=== PATIENT | female | born 1940 | race Caucasian/White ===

== ENCOUNTER 2017-10-25 16:00 | Inpatient (IN) ==
[2017-10-25] MEDS ORDERED: 0.9 % Sodium Chloride 1,000 ML IVC ONE (16:08)
[2017-10-25] MEDS ORDERED: *HR* Promethazine 25 MG/ML VIAL IVP ONE (16:09)
[2017-10-25 16:35] LABS: Basophils % 0.5 %; Eosinophils # 0.1 K/mcL (0.0-0.6); Eosinophils % 2.1 %; Hematocrit 30.6 % (35.3-44.9); Hemoglobin 10.6 g/dL (11.5-15.4); Immature Granulocytes % 0.3 % (0-4); Lymphocytes # 1.6 K/mcL (0.6-4.6); Lymphocytes % 23.8 %; Mean Corpuscular HGB Conc 34.6 g/dL (31.6-35.5); Mean Corpuscular Hemoglobin 32.9 pg (28.0-33.3); Mean Platelet Volume 10.6 fL (9.4-12.4); Monocytes # 0.5 K/mcL (0.0-1.3); Monocytes % 7.9 %; Neutrophils # 4.3 K/mcL (1.6-8.9); Platelet Count 259 K/mcL (140-400); Red Blood Count 3.22 M/mcL (3.82-4.97); Red Cell Distribution Width 14.6 % (11.5-14.5); Segmented Neutrophils % 65.4 %
[2017-10-25 16:41] LABS: INR 1.1; Prothrombin Time 11.4 Seconds (9.4-12.1)
[2017-10-25 16:44] LABS: Activated Partial Thrombo Time 26.6 Seconds (26.0-36.0)
[2017-10-25 16:49] LABS: BUN/Creatinine Ratio 17 (6-26); Blood Urea Nitrogen 21 mg/dL (8-23); Calcium 9.3 mg/dL (8.6-10.3); Carbon Dioxide 27 mEq/L (23-29); Chloride 107 mEq/L (98-107); Glucose 116 mg/dL (70-105); Osmolality,Calculated 298 (280-300); Potassium 3.8 mEq/L (3.5-5.1); Sodium 142 mEq/L (136-145); Troponin I < 0.03 ng/mL (< 0.04); eGFR For African Americans 53 (> 60); eGFR For Non-African Americans 43 (> 60)
--- NOTE | 2017-10-25 16:52 | Emergency Department Note ---
Disposition Clinical Impression: Lightheaded, Nausea, Melena, Upper gastrointestinal hemorrhage GI bleed Qualifiers: GI bleed type/associated pathology: unspecified gastrointestinal hemorrhage type Qualified Code(s): K92.2 - Gastrointestinal hemorrhage, unspecified Disposition: Admitted As Inpatient Condition: Fair Referrals: Suzy Villa CNP [Primary Care Provider] - Time of Disposition: 17:32 General Adult HPI - General Chief complaint: ED GI Bleed Stated complaint: Black Tarry Stools Time Seen by Provider: 10/25/17 16:07 Source: patient, EMS Limitations: no limitations Nursing Notes Reviewed: Yes Vital Signs Reviewed: Yes - History of Present Illness HPI Narrative: Ms. Banuelos is a very pleasant 77-year-old female with a history of anemia, coronary artery disease status post 7 stents, diverticulosis, GERD and IBS who presents to the [facility] emergency department chief complaint of nausea vomiting with lightheadedness. Patient was recently discharged from [facility] with [place] yesterday. Of note , she was admitted for a symptomatically anemia and was found to be FOBT positive. Patient had a EGD in 2017 that showed acute gastritis with reflux. As well as a coloscopy. Physical is unremarkable. Patient had serial H&H's remained stable throughout her stay. There is no emergent GI procedure was indicated. She was given a PPI throughout. Patient is on anticoagulation with aspirin and Plavix. Blood work on 10/22/17 demonstrated H&H of 10.6/29.3. There is no evidence of any blood transfusions were given. Patient denies any chest pain, palpitations, shortness of breath, abdominal pain, dysuria, gross materia, hematochezia or melena. No other complaints at this time. Pain Scale: 0 - Related Data Allergies Allergy/AdvReac Type Severity Reaction Status Date / Time Iodinated Contrast- Oral and Allergy Hives Verified 10/25/17 16:11 IV Dye meperidine [From Demerol] Allergy Hives Verified 10/25/17 16:11 Review of Systems: As Per HPI Past Medical History - Past Medical History Medical history: Reports: atrial fibrillation, coronary artery disease, hyperlipidemia, hypertension Psychiatric history: Reports: no psych history - Social History Smoking Status: Never smoker Smokeless Tobacco Status: No Alcohol use: Reports: none Drug use: Reports: none Physical Exam CONSTITUTIONAL: Alert and oriented X3 in no apparent distress HEAD: Normocephalic; atraumatic. EYES: Ocular movements grossly intact Oropharynx: pink/moist RESP: NRD without use of accessory musculature, CTA b/l with no wheezes/rales/ rhonchi CARD: Regular rhythm, without murmurs, rubs, or gallop ABD: grossly normal, soft, non-tender, no guarding/distention/rigidity SKIN: normal appearance, no pallor/diaphoresis,mottling,jaundice,cyanosis EXT: DP/Rad pulses 2+ and symmetrical; no lateralizing edema; no other lesions seen PSYCH: appropriate mood/affect - General Limitations: no limitations General appearance: alert, in no apparent distress Course Course Narrative: Patient was seen and examined at bedside. Vital signs reviewed and were unremarkable. Physical examination demonstrates no evidence of acute anemia. Patient is hemodynamically stable. Abdominal exam was unremarkable. There is no evidence of tenderness, rebound tenderness, guarding, rigidity. Patient is comfortable and nontoxic appearing at this time. Begin workup with CBC, BMP, troponin, coags, twelve-lead EKG. IV access will be obtained patient received IV fluids with 1 dose of Phenergan. 12-lead EKG demonstrated normal sinus rhythm without any obvious T-wave or ST abnormalities. This was compared to previous was performed on 10/22/17. Patient was stool Hemoccult positive. Troponin was negative. BMP shows mild elevation of creatinine 1.21. CBC demonstrates hemoglobin of 10.6 that was stable from previous discharge on . Given the patient was recently admitted for symptomatic anemia and did not receive any further endoscopy, I recommended patient be admitted to the hospital service for further evaluation. Hospitalist will be paged. [id number]: Spoke with hospitalist, , who accepted patient for admission. No further recommendations per hospital team. This disposition and plan was discussed patient who understands and agrees. All concerns and questions were addressed. Vital Signs Temperature 97.5 F L 10/25/17 16:02 Pulse Rate 62 10/25/17 16:02 Respiratory Rate 18 10/25/17 16:02 Blood Pressure 119/71 10/25/17 16:02 O2 Sat by Pulse Oximetry 98 10/25/17 16:02 Temperature 97.5 F L 10/25/17 16:02 Pulse Rate 62 10/25/17 16:02 Respiratory Rate 18 04/29/18 16:02 Blood Pressure 119/71 10/25/17 16:02 O2 Sat by Pulse Oximetry 98 10/25/17 16:02 Oxygen Delivery Oxygen Delivery Room Air Medical Decision Making - Medical Records Medical records reviewed: Yes I reviewed the patient's medical records. - Lab Data Lab results reviewed: Yes I reviewed the patient's lab results. Result diagrams: 10/25/17 16:16 10/25/17 16:16 Lab Results 10/25/17 10/25/17 10/25/17 Range/Units 16:16 16:16 16:16 WBC 6.6 (4.3-11.1) K/mcL RBC 3.22 L (3.82-4.97) M/mcL Hgb 10.6 L (11.5-15.4) g/dL Hct 30.6 L (35.3-44.9) % MCV 95.0 (83.0-100.0) fL MCH 32.9 (28.0-33.3) pg MCHC 34.6 (31.6-35.5) g/dL RDW 14.6 H (11.5-14.5) % Plt Count 259 (140-400) K/mcL MPV 10.6 (9.4-12.4) fL Immature Gran % 0.3 (0-4) % Seg Neutrophils % 65.4 % Lymphocytes % 23.8 % Monocytes % 7.9 % Eosinophils % 2.1 % Basophils % 0.5 % Neutrophils # 4.3 (1.6-8.9) K/mcL Lymphocytes # 1.6 (0.6-4.6) K/mcL Monocytes # 0.5 (0.0-1.3) K/mcL Eosinophils # 0.1 (0.0-0.6) K/mcL Basophils # 0.0 (0.0-0.2) K/mcL PT 11.4 (9.4-12.1) Seconds INR 1.1 APTT 26.6 (26.0-36.0) Seconds Sodium 142 (136-145) mEq/L Potassium 3.8 (3.5-5.1) mEq/L Chloride 107 (98-107) mEq/L Carbon Dioxide 27 (23-29) mEq/L BUN 21 (8-23) mg/dL Creatinine 1.21 H (0.60-1.20) mg/dL Est GFR ( Amer) 53 L (> 60) Est GFR (Non-Af Amer) 43 L (> 60) BUN/Creatinine Ratio 17 (6-26) Glucose 116 H (70-105) mg/dL Calculated Osmolality 298 (280-300) Calcium 9.3 (8.6-10.3) mg/dL Troponin I < 0.03 (< 0.04) ng/mL Attestation Statement - Attestation Attestation: I, Mervin Alves DO, examined this patient [id number] and my medical decision-making was reviewed with Rikki Rodriguez PGY-1, Resident Physician. I agree with the documented findings, disposition and treatment plan as described except to the extent set forth below. Please see my progress notes for details.
--- NOTE | 2017-10-25 17:29 | Emergency Department Note ---
Disposition Clinical Impression: Melena, Upper gastrointestinal hemorrhage, Lightheaded, Nausea Disposition: Admitted As Inpatient Condition: Fair Forms: ED Satisfaction Letter Time of Disposition: 17:39 General Adult HPI - General Chief complaint: ED GI Bleed Stated complaint: Black Tarry Stools Time Seen by Provider: 10/25/17 16:07 Source: patient, EMS Limitations: no limitations - History of Present Illness Pain Scale: 0 - Related Data Allergies Allergy/AdvReac Type Severity Reaction Status Date / Time Iodinated Contrast- Oral and Allergy Hives Verified 10/25/17 16:11 IV Dye meperidine [From Demerol] Allergy Hives Verified 10/25/17 16:11 Past Medical History - Past Medical History Medical history: Reports: atrial fibrillation, coronary artery disease, hyperlipidemia, hypertension Psychiatric history: Reports: no psych history - Social History Smoking Status: Never smoker Smokeless Tobacco Status: No Alcohol use: Reports: none Drug use: Reports: none Physical Exam - General Limitations: no limitations General appearance: alert, in no apparent distress Course Vital Signs Temperature 97.5 F L 10/25/17 16:02 Pulse Rate 62 10/25/17 16:02 Respiratory Rate 18 10/25/17 16:02 Blood Pressure 119/71 10/25/17 16:02 O2 Sat by Pulse Oximetry 98 10/25/17 16:02 Temperature 97.5 F L 10/25/17 16:02 Pulse Rate 62 10/25/17 16:02 Respiratory Rate 18 10/25/17 16:02 Blood Pressure 119/71 10/25/17 16:02 O2 Sat by Pulse Oximetry 98 10/25/17 16:02 Oxygen Delivery Oxygen Delivery Room Air Medical Decision Making - Lab Data Result diagrams: 10/25/17 16:16 10/25/17 16:16 Lab Results 10/25/17 10/25/17 10/25/17 Range/Units 16:16 16:16 16:16 WBC 6.6 (4.3-11.1) K/mcL RBC 3.22 L (3.82-4.97) M/mcL Hgb 10.6 L (11.5-15.4) g/dL Hct 30.6 L (35.3-44.9) % MCV 95.0 (83.0-100.0) fL MCH 32.9 (28.0-33.3) pg MCHC 34.6 (31.6-35.5) g/dL RDW 14.6 H (11.5-14.5) % Plt Count 259 (140-400) K/mcL MPV 10.6 (9.4-12.4) fL Immature Gran % 0.3 (0-4) % Seg Neutrophils % 65.4 % Lymphocytes % 23.8 % Monocytes % 7.9 % Eosinophils % 2.1 % Basophils % 0.5 % Neutrophils # 4.3 (1.6-8.9) K/mcL Lymphocytes # 1.6 (0.6-4.6) K/mcL Monocytes # 0.5 (0.0-1.3) K/mcL Eosinophils # 0.1 (0.0-0.6) K/mcL Basophils # 0.0 (0.0-0.2) K/mcL PT 11.4 (9.4-12.1) Seconds INR 1.1 APTT 26.6 (26.0-36.0) Seconds Sodium 142 (136-145) mEq/L Potassium 3.8 (3.5-5.1) mEq/L Chloride 107 (98-107) mEq/L Carbon Dioxide 27 (23-29) mEq/L BUN 21 (8-23) mg/dL Creatinine 1.21 H (0.60-1.20) mg/dL Est GFR ( Amer) 53 L (> 60) Est GFR (Non-Af Amer) 43 L (> 60) BUN/Creatinine Ratio 17 (6-26) Glucose 116 H (70-105) mg/dL Calculated Osmolality 298 (280-300) Calcium 9.3 (8.6-10.3) mg/dL Troponin I < 0.03 (< 0.04) ng/mL Attestation Statement - Attestation Attestation: I, Mervin Alves DO, examined this patient [id number] and my medical decision-making was reviewed with Rikki Rodriguez PGY-1, Resident Physician. I agree with the documented findings, disposition and treatment plan as described except to the extent set forth below. Please see my progress notes for details. 77-year-old female presents to the emergency room for evaluation dark colored stool. She was just discharged from an outside facility where she was evaluated for melanoma, weakness, possible anemia. She was discharged home yesterday and came back to her own residence. Over the last 24 hours she still had generalized weakness. She is unable to take care of herself. She currently denies chest pain shortness of breath headache vision changes nausea vomiting or diarrhea. Denies any fevers or chills. Patient has not been home greater than 24 hours. She still symptomatic with anemia that was found outside facility. She denies any trauma or injury at this time. She does have known atrial fibrillation and coronary artery disease. She denies any specific hemorrhage at this point. She has no abdominal pain nausea vomiting or diarrhea. Physical exam shows a well-appearing female in no specific distress. She is generally weak hypertension due to to move her exert herself. Workup will be culture from the outside facility repeat evaluation be completed here. Disposition to be determined once full workup and treatment course are established. Fluids will be given. Hemoccult testing to be collected. Otherwise her examination workup initially appear to be unremarkable. Vital signs are stable. See detailed documentation of the physical exam, medical intervention, medical decision-making and disposition in the resident physician' s note. [id number] Patient found to have stable hemoglobin at 10.6. Labs from outside facility were reviewed as well as the workup. Patient never received endoscopy there. Patient has had persistent anemia and symptomatic GI bleed at this point. She is Hemoccult positive on exam. Patient was discussed with the hospitals for admission observation and then possible endoscopy considering symptomatic presentation. No other recommendations from them at this time. Patient stable will be admitted at this time. No critical care applied to the treatment course at this time
[2017-10-25] MEDS ORDERED: Pantoprazole 40 MG VIAL IVP ONE (17:34)
--- NOTE | 2017-10-25 17:58 | Internal Med History&Physical ---
Date of Encounter: 10/25/17 Time of Encounter: 17:53 Internal Medicine - H&P: HPI Chief complaint: black stool Admitted From: Home Plans for Post Hospital Care: Home History of present illness: Ms. Banuelos is a 77 year old female who has history of CAD state opposes having stents on Plavix and aspirin, hypertension hyperlipidemia treated bowel syndrome presenting emergency room for Black stool and the syncope. Patient reports that she started to have black stool 10 days ago, was seen by her PCP and the also admitted to [facility] 2 days ago. They discharge her her on Tylenol and PPI home yesterday. But the patient to continue to have black stool and the dizziness. She passed out on Thursday, she also complains of right low quadrant abdominal pain, which started 10 days ago 3 out of 10 constant, eating make it worse. In the emergency room her vitals are stable, hemoglobin 10 no baseline number. Her stool occult blood was positive. Patient is going to be admitted for upper GI bleeding. Will give PPI twice a day, nothing by mouth after midnight consult the GI for possible endoscopy. He has been on Plavix and aspirin for many years. She also has right low quadrant pain and tenderness our do a CAT scan to rule out diverticulitis. Past Med Surg Social Fam HX - Past Medical History Medical history: atrial fibrillation, coronary artery disease, hyperlipidemia, hypertension Psychiatric history: no psych history - Social History Smoking Status: Never smoker Smokeless Tobacco Status: No Alcohol use: none Drug use: none Internal Medicine - H&P: Meds 3 Allergy/AdvReac Type Severity Reaction Status Date / Time Iodinated Contrast- Oral and Allergy Hives Verified 10/25/17 16:11 IV Dye meperidine [From Demerol] Allergy Hives Verified 10/25/17 16:11 All Systems PM: A 10-system review of systems was performed and is negative for pertinent findings except as documented above in the HPI. - Constitutional Vitals: Temp Pulse Resp BP Pulse Ox 97.5 F L 62 18 119/71 98 10/25/17 16:02 10/25/17 16:02 10/25/17 16:02 10/25/17 16:02 10/25/17 16:02 General appearance: Present: A&O X 3, pleasant Exam: CONSTITUTIONAL: Patient appears as an age appropriate female well developed, in no acute distress. EYES Clear sclerae, bilateral pupils are equal, reactive to light and accommodation. Extraocular movements are intact RESPIRATORY: No accessory muscle use, bilateral clear to auscultation, no wheezing, no crackles/rales. CARDIOVASCULAR: Regular heart rate, normal S1 and S2, no murmurs GASTROINTESTINAL: bowel sounds present, soft, right low quandary tenderness. No hepatosplenomegaly. No bilateral CVA tenderness MUSCULOSKELETAL: Joints in normal range of motion, no clubbing, no edema, no cyanosis. Bilateral peripheral pulses 2+ LYMPHATIC no lymphadenopathy in neck, groin and axilla bilaterally, no thyromegaly. NEUROLOGIC: CN II to XII are grossly intact, no focal neurological deficit. Deep tendon reflexes 2+ bilaterally. Normal light touch sensation to upper and lower extremity PSYCHIATRIC: Oriented x3, with good insight, mood is euthymic. No hallucinations or delusions. SKIN: Skin warm and dry, no rashes, no open wound. Internal Med - H&P Results - Labs CBC & Chem 7: 10/25/17 16:16 10/25/17 16:16 Labs: Short CBC 10/25/17 Range/Units 16:16 WBC 6.6 (4.3-11.1) K/mcL Hgb 10.6 L (11.5-15.4) g/dL Hct 30.6 L (35.3-44.9) % Plt Count 259 (140-400) K/mcL Neutrophils # 4.3 (1.6-8.9) K/mcL BMP 10/25/17 16:16 Sodium 142 Potassium 3.8 Chloride 107 Carbon Dioxide 27 BUN 21 Creatinine 1.21 H Glucose 116 H Calcium 9.3 Cardiac Enzymes 10/25/17 Range/Units 16:16 Troponin I < 0.03 (< 0.04) ng/mL - Assessment and plan (1) GI bleed Current Visit: Yes Status: Acute Assessment and plan: Patient has black stool for 10 days, she has been on aspirin and plavix for many years. Patient is at risk for upper GI bleeding we will consult the GI for possible endoscopy. Qualifiers: GI bleed type/associated pathology: melena Qualified Code(s): K92.1 - Melena (2) Anemia Current Visit: Yes Status: Acute Assessment and plan: Anemia of GI bleeding Qualifiers: Anemia type: iron deficiency Iron deficiency anemia type: chronic blood loss Qualified Code(s): D50.0 - Iron deficiency anemia secondary to blood loss (chronic) (3) CAD (coronary artery disease) Current Visit: Yes Status: Acute Assessment and plan: CAD stated post 7 stents last the stents in 2014, we will hold her Plavix continue baby aspirin Qualifiers: Coronary Disease-Associated Artery/Lesion type: [place] artery [place] vs. transplanted heart: [place] heart Associated angina: without angina Qualified Code(s): I25.10 - Atherosclerotic heart disease of [place] coronary artery without angina pectoris (4) Abdominal pain Current Visit: Yes Status: Acute Assessment and plan: Acute abdominal pain will check CT scan Qualifiers: Abdominal location: right lower quadrant Qualified Code(s): R10.31 - Right lower quadrant pain (5) Hypertension Current Visit: Yes Status: Chronic Assessment and plan: Continue home medications Qualifiers: Hypertension type: essential hypertension Qualified Code(s): I10 - Essential (primary) hypertension (6) Hyperlipidemia Current Visit: Yes Status: Chronic Qualifiers: Hyperlipidemia type: unspecified Qualified Code(s): E78.5 - Hyperlipidemia , unspecified (7) IBS (irritable bowel syndrome) Current Visit: Yes Status: Chronic Qualifiers: Irritable bowel syndrome type: with diarrhea Qualified Code(s): K58.0 - Irritable bowel syndrome with diarrhea - Time Spent With Patient Total time spent is greater than 50% in coordination of care (as documented) at patient's floor/unit and/or counseling patient: Greater than 35 minutes
[2017-10-25] MEDS ORDERED: Naloxone 0.4 MG/ML INJ IVP PRN (18:04)
[2017-10-25] MEDS: Ringers Solution, Lactated 1,000 ML IVC SCH (19:49)
[2017-10-26 04:29] LABS: Hematocrit 25.7 % (35.3-44.9); Mean Corpuscular HGB Conc 33.5 g/dL (31.6-35.5); Mean Corpuscular Volume 95.5 fL (83.0-100.0); Mean Platelet Volume 10.6 fL (9.4-12.4); Platelet Count 181 K/mcL (140-400); Red Blood Count 2.69 M/mcL (3.82-4.97); Red Cell Distribution Width 14.8 % (11.5-14.5)
[2017-10-26 04:31] LABS: Hemoglobin 8.6 g/dL (11.5-15.4)
[2017-10-26 05:28] LABS: Calcium 8.8 mg/dL (8.6-10.3); Potassium 3.4 mEq/L (3.5-5.1)
[2017-10-26] MEDS ORDERED: Pantoprazole 40 MG VIAL IVP SCH (06:00)
[2017-10-26] MEDS: amLODIPine 5 MG TABLET PO SCH (08:20)
[2017-10-26] MEDS: Ringers Solution, Lactated 1,000 ML IVC SCH (08:20)
[2017-10-26] MEDS ORDERED: Aspirin Enteric Coated 81 MG Tablet PO SCH (09:00)
[2017-10-26] MEDS ORDERED: Potassium Chloride 40 MEQ, Lidocaine 1% 2 ML in D5% in Water 500 ML IVPB ONE (10:01)
--- NOTE | 2017-10-26 10:12 | Internal Med Progress Note ---
Date of Encounter: 10/26/17 Time of Encounter: 09:30 - Assessment and plan (1) Upper gastrointestinal hemorrhage Current Visit: Yes Status: Acute Assessment and plan: Plan: Start Protonix infusion. GI has seen the patient. Likely endoscopy soon. (2) Anemia Current Visit: Yes Status: Acute Assessment and plan: Trend hemoglobin, repeat hemoglobin at 4 PM today. Type and screen now. (3) CAD (coronary artery disease) Current Visit: Yes Status: Acute Assessment and plan: Last intervention 2014. She may hold aspirin and Plavix. Qualifiers: Coronary Disease-Associated Artery/Lesion type: [place] artery [place] vs. transplanted heart: [place] heart Associated angina: without angina Qualified Code(s): I25.10 - Atherosclerotic heart disease of [place] coronary artery without angina pectoris (4) Hyperlipidemia Current Visit: Yes Status: Chronic Qualifiers: Hyperlipidemia type: unspecified Qualified Code(s): E78.5 - Hyperlipidemia , unspecified (5) Hypertension Current Visit: Yes Status: Chronic Qualifiers: Hypertension type: essential hypertension Qualified Code(s): I10 - Essential (primary) hypertension - Time Spent With Patient Total time spent is greater than 50% in coordination of care (as documented) at patient's floor/unit and/or counseling patient: 25 - 35 minutes - Subjective Interval history: Reports abdominal pain, diffuse, nonspecific. No epigastric pain. Black stool until yesterday. No hematemesis. - Constitutional Vitals: Temp Pulse Resp BP Pulse Ox 98.2 F 69 16 149/62 96 10/26/17 06:34 10/26/17 06:34 10/26/17 06:34 10/26/17 06:34 10/26/17 06:34 General appearance: Present: A&O X 3, pleasant Exam: Physical exam Gen: Comfortable, laying in bed, in no visible distress HEENT: Normocephalic, atraumatic. No conjunctival icterus. Moist oral mucosa. Neck: Supple Lungs: Clear to auscultation, no foreign sounds Heart: Normal S1-S2, no murmurs rubs or gallops Abdomen: Normoactive bowel sounds, no guarding rigidity , tenderness diffuse Extremities: No edema clubbing or cyanosis Neuro: Alert oriented 3, no focal deficits Skin: No skin lesions Internal Medicine: Result - Labs CBC & Chem 7: 10/26/17 04:13 10/26/17 04:13 Labs: Short CBC 10/26/17 Range/Units 04:13 WBC 4.6 (4.3-11.1) K/mcL Hgb 8.6 L D (11.5-15.4) g/dL Hct 25.7 L (35.3-44.9) % Plt Count 181 (140-400) K/mcL BMP 10/26/17 04:13 Sodium 143 Potassium 3.4 L Chloride 111 H Carbon Dioxide 27 BUN 18 Creatinine 1.11 Glucose 122 H Calcium 8.8 - ABG Interpretation ABG results: PT/INR, D-dimer PT 11.0 Seconds (9.4-12.1) 10/26/17 04:13 - Impressions Impressions Abdomen/Pelvis CT 10/25/17 20:45 IMPRESSION: Small nonobstructive calculus within the right renal pelvis. Diverticulosis without evidence of acute diverticulitis. Normal appendix. Suspected cirrhosis with associated cholecystectomy. Hysterectomy. D/ / 10/25/2017 22:06:18 Issa Segura MD / aiyana Interpreting Provider: Issa Segura MD - VTE Reasons for not Prescribing Prophylaxis: Treatment not Indicated - Low risk for VTE Consult Discharge Plan - Plan Referrals: Suzy Villa CNP [Primary Care Provider] -
--- NOTE | 2017-10-26 10:17 | Electrocardiograph Report ---
[place] [id number] Test Date: 2017-10-25 Pat Name: Nevin Banuelos Department: 104 Room: 2A Gender: F [employer]: : 1940 Requested By: Ravin Rodriguez Order Number: [id number] Reading MD: Niecy Carlton Measurements Intervals [place] Rate: 68 P: 65 NC: 156 QRS: -5 QRSD: 81 T: 29 QT: 386 QTc: 403 Interpretive Statements SINUS RHYTHM Electronically Signed On 10-26-2017 10:16:34 EDT by Niecy Carlton
[2017-10-26] MEDS: Pantoprazole 40 MG in 0.9 % Sodium Chloride Mini Bag 100 ML IVC SCH ×2 (10:19→16:37)
--- NOTE | 2017-10-26 12:07 | Gastroenterology Consult Note ---
<BarryJose Antonio tariq Campbell - Last Filed: 10/26/17 12:05> Date of Encounter: 10/26/17 Time of Encounter: 10:25 - Assessment and plan (1) Melena Current Visit: Yes Status: Acute Assessment and plan: Plan for EGD today to r/o esophagitis, gastritis, duodenitis, PUD, MW tear, or AVM. Keep NPO. (2) Abdominal pain Current Visit: Yes Status: Acute Assessment and plan: CT A/P with diverticulosis and possible cirrhosis as the contour of the liver is somewhat irregular. Check liver US and hepatic panel. Qualifiers: Abdominal location: right lower quadrant Qualified Code(s): R10.31 - Right lower quadrant pain (3) Anemia Current Visit: Yes Status: Acute Assessment and plan: Hgb 10.6 on admission and 8.6 today. Continue to monitor CBC and transfuse PRBC as needed. Plan for EGD today to r/o esophagitis, gastritis, duodenitis, PUD, MW tear, or AVM. Qualifiers: Anemia type: iron deficiency Iron deficiency anemia type: chronic blood loss Qualified Code(s): D50.0 - Iron deficiency anemia secondary to blood loss (chronic) - Time Spent With Patient Total time spent is greater than 50% in coordination of care (as documented) at patient's floor/unit and/or counseling patient: GI History of Present Illness - Data of Consult Patient: new to practice Consult date: 10/26/17 Requesting Physician: Bianca Mccloud MD - Consult Narrative Reason for consult: GI Bleeding History of present illness: Ms. Banuelos is a 77 year old female with PMHx of Afib, CAD, HLD, HTN, who presented to the ED with black stool and syncope. Patient reports that she started to have black stool 10 days prior to admission, was seen by her PCP and the also admitted to [facility] 2 days before admission here. She states she continued to have black stool after discharge. She states she passed out and she also complains of right low quadrant abdominal pain, which started 10 days ago, eating make it worse. She was hemoccult positive in the ED. She was started on BID PPI. CT A/P with diverticulosis and possible cirrhosis as the contour of the liver is somewhat irregular. Procedures: No record NSAIDs: ASA Anticoagulation: Plavix Past Med Surg Social Fam HX - Past Medical History Medical history: atrial fibrillation, coronary artery disease, hyperlipidemia, hypertension Psychiatric history: no psych history - Social History Smoking Status: Never smoker Smokeless Tobacco Status: No Alcohol use: none Drug use: none - Gastrointestinal Gastrointestinal: Present: as per HPI - Constitutional Constitutional: as per HPI - EENT Eyes: as per HPI Ears: Present: as per HPI Nose, mouth and throat: Present: as per HPI - Cardiovascular Cardiovascular ROS: Present: as per HPI - Respiratory Respiratory IM: Present: as per HPI - Genitourinary Genitourinary: Absent: change in color, Urinary frequency - Neurological ROS Neurological GI: Present: as per HPI - Hematologic/Lymphatic Hematologic/Lymphatic pediatric: Present: as per HPI - Musculoskeletal Musculoskeletal ROS GI: Present: as per HPI - Integumentary Integumentary GI: Present: as per HPI - Psychiatric ROS Psychiatric GI: Present: as per HPI - Endocrine Endocrine IM: Present: as per HPI - Constitutional Vitals: Temp Pulse Resp BP Pulse Ox 98.2 F 60 16 149/64 97 10/26/17 11:02 10/26/17 11:02 10/26/17 11:02 10/26/17 11:02 10/26/17 11:02 General appearance: Present: cooperative, A&O X 3, no acute distress, answers questions appropriately - Head Head exam: Present: atraumatic, normocephalic - Eye Eye exam: Present: normal appearance, sclera anicteric - ENT ENT exam: Present: mucous membranes dry - Neck Neck exam general surgery: Present: normal inspection, trachea midline - Respiratory Respiratory exam: Present: CTAB. Absent: rales, rhonchi - Cardiovascular Cardiovascular exam: Present: RRR, +S1, +S2 - GI/Abdominal GI/Abdominal exam: Present: soft, tenderness (generalized), no peritoneal signs. Absent: distended, firm, guarding - Rectal Rectal exam: Present: deferred - Extremities Exam Extremities exam: Present: warm - Neurological Exam Neurological exam: Present: no focal deficits - Psychiatric Psychiatric exam: Present: normal affect, normal mood - Skin Skin exam: Present: dry, intact, normal color, warm Results - Labs CBC & Chem 7: 10/26/17 04:13 10/26/17 04:13 Labs: Last Result Calcium 8.8 mg/dL (8.6-10.3) 10/26/17 04:13 Troponin I < 0.03 ng/mL (< 0.04) 10/25/17 16:16 Stool Occult Blood Positive (Negative) A 10/25/17 22:34 Entire Visit Hgb 8.6 g/dL (11.5-15.4) L D 10/26/17 04:13 Hct 25.7 % (35.3-44.9) L 10/26/17 04:13 PT 11.0 Seconds (9.4-12.1) 10/26/17 04:13 - ABG ABG results: PT/INR, D-dimer PT 11.0 Seconds (9.4-12.1) 10/26/17 04:13 Consult Discharge Plan - Plan Referrals: Suzy Villa, [employer]ST[employer]ING [employer]ACHINE [employer] [Primary Care Provider] - <Jitendra Rivera - Last Filed: 10/26/17 13:10> Date of Encounter: 10/26/17 - Time Spent With Patient Total time spent is greater than 50% in coordination of care (as documented) at patient's floor/unit and/or counseling patient: GI History of Present Illness - Data of Consult Requesting Physician: Bianca Mccloud MD - Consult Narrative History of present illness: Ms. Banuelos is a 77 year old female - Constitutional Vitals: Temp Pulse Resp BP Pulse Ox 98.2 F 60 16 149/64 97 10/26/17 11:02 10/26/17 11:02 10/26/17 11:02 10/26/17 11:02 10/26/17 11:02 Results - Labs CBC & Chem 7: 10/26/17 04:13 10/26/17 04:13 Labs: Last Result Calcium 8.8 mg/dL (8.6-10.3) 10/26/17 04:13 Troponin I < 0.03 ng/mL (< 0.04) 10/25/17 16:16 Stool Occult Blood Positive (Negative) A 10/25/17 22:34 Entire Visit Hgb 8.6 g/dL (11.5-15.4) L D 10/26/17 04:13 Hct 25.7 % (35.3-44.9) L 10/26/17 04:13 PT 11.0 Seconds (9.4-12.1) 10/26/17 04:13 - ABG ABG results: PT/INR, D-dimer PT 11.0 Seconds (9.4-12.1) 10/26/17 04:13 - Attending Attestation Ms. Banuelos has been complaining of black runny bowel movements for the last 1- 2 weeks. Stated two Tuesdays ago and she passed out apparently at home and saw her primary care provider but, did not mention the syncopal episode. She she went to urgent care past and was shipped to [facility] was then shipped again to him addressed in [facility] because there is no forensic toxicologist there apparently she was not transfused there and was told that she would have to come back for endoscopy as outpatient apparently she is being admitted and was admitted there for 3 days. She was discharged on Thursday. Patient has been on long-term aspirin and Plavix for 4 coronary stents the most recent one placed about 3 years ago no past history of peptic ulcer disease she does have a history of endometrial cancer underwent radiation in 2008 thirty fractions along with a total abdominal hysterectomy after that two seeds were implanted after the radiation therapy. She underwent EGD last year at [facility] and was asked to follow up with an EGD in 6 months - unclear reason will need to get old records to check this. Plan EGD today and colonoscopy tomorrow. I have personally performed a face to face evaluation on this patient. I have reviewed and agree with the care plan. History and Exam by me shows:
[2017-10-26 13:38] LABS: Albumin 3.2 g/dL (3.5-5.7); Albumin/Globulin Ratio 1.4 (1.1-2.2); Bilirubin,Direct 0.1 mg/dL (0.0-0.2); Bilirubin,Indirect 0.4 mg/dL (0.0-1.2); Bilirubin,Total 0.5 mg/dL (0.3-1.0); Globulin 2.3 g/dL (2.4-3.5); Total Protein 5.5 g/dL (6.4-8.9)
[2017-10-26] MEDS ORDERED: SODIUM CHLORIDE/NAHCO3/KCL/PEG 4,000 ML SOLN.RECON PO ONE (17:00)
[2017-10-26 17:06] LABS: Basophils % 0.4 %; Eosinophils # 0.2 K/mcL (0.0-0.6); Hematocrit 29.6 % (35.3-44.9); Immature Granulocytes % 0.4 % (0-4); Lymphocytes # 1.4 K/mcL (0.6-4.6); Mean Corpuscular HGB Conc 33.8 g/dL (31.6-35.5); Mean Corpuscular Hemoglobin 32.7 pg (28.0-33.3); Mean Corpuscular Volume 96.7 fL (83.0-100.0); Mean Platelet Volume 10.7 fL (9.4-12.4); Monocytes # 0.4 K/mcL (0.0-1.3); Monocytes % 8.1 %; Neutrophils # 3.2 K/mcL (1.6-8.9); Platelet Count 236 K/mcL (140-400); Red Blood Count 3.06 M/mcL (3.82-4.97); Red Cell Distribution Width 14.9 % (11.5-14.5); Segmented Neutrophils % 61.1 %
[2017-10-26] MEDS: hydroCHLOROthiazide 25 MG TABLET PO SCH (20:03)
[2017-10-26] MEDS: Valsartan 160 MG TABLET PO SCH (20:03)
[2017-10-27] MEDS: Pantoprazole 40 MG in 0.9 % Sodium Chloride Mini Bag 100 ML IVC SCH ×6 (01:03→23:41)
[2017-10-27 05:43] LABS: Basophils % 0.5 %; Eosinophils # 0.2 K/mcL (0.0-0.6); Eosinophils % 3.2 %; Hematocrit 25.5 % (35.3-44.9); Hemoglobin 8.7 g/dL (11.5-15.4); Immature Granulocytes % 0.3 % (0-4); Lymphocytes # 1.3 K/mcL (0.6-4.6); Lymphocytes % 20.5 %; Mean Corpuscular HGB Conc 34.1 g/dL (31.6-35.5); Mean Corpuscular Volume 96.6 fL (83.0-100.0); Mean Platelet Volume 10.7 fL (9.4-12.4); Monocytes # 0.5 K/mcL (0.0-1.3); Monocytes % 8.3 %; Neutrophils # 4.2 K/mcL (1.6-8.9); Platelet Count 201 K/mcL (140-400); Red Blood Count 2.64 M/mcL (3.82-4.97); Red Cell Distribution Width 14.6 % (11.5-14.5); Segmented Neutrophils % 67.2 %
[2017-10-27 06:01] LABS: BUN/Creatinine Ratio 14 (6-26); Blood Urea Nitrogen 13 mg/dL (8-23); Calcium 8.8 mg/dL (8.6-10.3); Carbon Dioxide 27 mEq/L (23-29); Chloride 110 mEq/L (98-107); Glucose 84 mg/dL (70-105); Osmolality,Calculated 297 (280-300); Potassium 3.4 mEq/L (3.5-5.1); Sodium 144 mEq/L (136-145); eGFR For African Americans > 60 (> 60); eGFR For Non-African Americans 58 (> 60)
[2017-10-27 10:01] LABS: Hepatitis B Surface Antigen Nonreactive (Nonreactive)
[2017-10-27] MEDS: amLODIPine 5 MG TABLET PO SCH (10:10)
--- NOTE | 2017-10-27 11:43 | Internal Med Progress Note ---
Date of Encounter: 10/27/17 Time of Encounter: 11:41 - Assessment and plan (1) GI bleed Current Visit: Yes Status: Acute Assessment and plan: Continue ppi drip, getting EGD and a colonoscopy today Qualifiers: GI bleed type/associated pathology: melena Qualified Code(s): K92.1 - Melena (2) Anemia Current Visit: Yes Status: Acute Assessment and plan: Anemia of GI bleeding, hemoglobin dropped from 10 g to 8.7. Qualifiers: Anemia type: iron deficiency Iron deficiency anemia type: chronic blood loss Qualified Code(s): D50.0 - Iron deficiency anemia secondary to blood loss (chronic) (3) CAD (coronary artery disease) Current Visit: Yes Status: Acute Assessment and plan: CAD stated post 7 stents last the stents in 2014, hold her Plavix continue baby aspirin Qualifiers: Coronary Disease-Associated Artery/Lesion type: [place] artery [place] vs. transplanted heart: [place] heart Associated angina: without angina Qualified Code(s): I25.10 - Atherosclerotic heart disease of [place] coronary artery without angina pectoris (4) Abdominal pain Current Visit: Yes Status: Acute Assessment and plan: Patient stated abdominal pain resolved CT shows Small nonobstructive calculus within the right renal pelvis. Diverticulosis without evidence of acute diverticulitis. Normal appendix. Suspected cirrhosis with associated cholecystectomy Ultrasound confirmed the liver cirrhosis Qualifiers: Abdominal location: right lower quadrant Qualified Code(s): R10.31 - Right lower quadrant pain (5) Hypertension Current Visit: Yes Status: Chronic Qualifiers: Hypertension type: essential hypertension Qualified Code(s): I10 - Essential (primary) hypertension (6) Hyperlipidemia Current Visit: Yes Status: Chronic Qualifiers: Hyperlipidemia type: unspecified Qualified Code(s): E78.5 - Hyperlipidemia , unspecified (7) IBS (irritable bowel syndrome) Current Visit: Yes Status: Chronic Qualifiers: Irritable bowel syndrome type: with diarrhea Qualified Code(s): K58.0 - Irritable bowel syndrome with diarrhea - Time Spent With Patient Total time spent is greater than 50% in coordination of care (as documented) at patient's floor/unit and/or counseling patient: Greater than 35 minutes - Subjective Interval history: Ms. Banuelos is a 77 year old female who has history of CAD state opposes having stents on Plavix and aspirin, hypertension hyperlipidemia treated bowel syndrome presenting emergency room for Black stool and the syncope. Patient reports that she started to have black stool 10 days ago, was seen by her PCP and the also admitted to [facility] 2 days ago. They discharge her her on Tylenol and PPI home yesterday. But the patient to continue to have black stool and the dizziness. She passed out on Thursday, she also complains of right low quadrant abdominal pain, which started 10 days ago 3 out of 10 constant, eating make it worse. In the emergency room her vitals are stable, hemoglobin 10 no baseline number. Her stool occult blood was positive. Patient is going to be admitted for upper GI bleeding ON 10/25. Patient is doing well, denies dizziness no abdominal pain. Hemoglobin dropped from 10 MTO 8.7, GI consult appreciated, she is going to have EGD and a colonoscopy - Constitutional Vitals: Temp Pulse Resp BP Pulse Ox 98.2 F 55 15 128/68 97 10/27/17 07:31 10/27/17 07:31 10/27/17 07:31 10/27/17 07:31 10/27/17 07:31 General appearance: Present: A&O X 3, pleasant Exam: CONSTITUTIONAL: patient appears as an age appropriate female in no acute distress. EYES Clear sclerae, bilateral pupils are equal, reactive to light. EMOI. RESPIRATORY: No accessory muscle use, bilateral clear to auscultation, no wheezing, no crackles/rales. CARDIOVASCULAR: Regular heart rate, normal S1 and S2, no murmurs GASTROINTESTINAL: bowel sounds present, soft, no tenderness. MUSCULOSKELETAL: Joints in normal range of motion, no clubbing, no edema, no cyanosis. Bilateral peripheral pulses 2+. NEUROLOGIC: CN II to XII are grossly intact, no focal neurological deficit. Internal Medicine: Result - Labs CBC & Chem 7: 10/27/17 04:48 10/27/17 04:48 Labs: Short CBC 10/26/17 10/27/17 Range/Units 16:53 04:48 WBC 5.2 6.3 (4.3-11.1) K/mcL Hgb 10.0 L 8.7 L (11.5-15.4) g/dL Hct 29.6 L 25.5 L (35.3-44.9) % Plt Count 236 201 (140-400) K/mcL Neutrophils # 3.2 4.2 (1.6-8.9) K/mcL BMP 10/27/17 04:48 Sodium 144 Potassium 3.4 L Chloride 110 H Carbon Dioxide 27 BUN 13 Creatinine 0.94 Glucose 84 Calcium 8.8 Liver Function 10/26/17 Range/Units 12:14 Total Bilirubin 0.5 (0.3-1.0) mg/dL Direct Bilirubin 0.1 (0.0-0.2) mg/dL AST 12 L (13-39) Units/L ALT 9 (7-52) Units/L Alkaline Phosphatase 49 (34-104) Units/L Albumin 3.2 L (3.5-5.7) g/dL - ABG Interpretation ABG results: PT/INR, D-dimer PT 11.0 Seconds (9.4-12.1) 10/26/17 04:13 - Impressions Impressions Liver Ultrasound 10/26/17 15:00 IMPRESSION: Mildly lobulated contour of the liver likely represents mild cirrhosis. Status post cholecystectomy. Normal common bile duct. Incidental renal cyst. D/ / 10/26/2017 16:27:30 Shana Weaver MD / [place] Interpreting Provider: Shana Weaver MD - VTE Reasons for not Prescribing Prophylaxis: Treatment not Indicated - Low risk for VTE Consult Discharge Plan - Plan Referrals: Suzy Villa CNP [Primary Care Provider] -
[2017-10-27] MEDS ORDERED: Nitroglycerin 0.4 MG TAB.SUBL SL PRN (11:47)
[2017-10-27] MEDS ORDERED: Propofol 500 MG/50 ML INFUS..BTL ONE (13:06)
[2017-10-27] MEDS ORDERED: Lidocaine -MPF 2% 2 ML VIAL ONE (13:32)
--- NOTE | 2017-10-27 14:17 | Anesthesia Evaluation PreOp ---
Date of Encounter: 10/27/17 Time of Encounter: 14:15 - Past History Planned Operation: EGD/colonoscopy Cardiac History: HTN, Hyperlipidemia, Arrhythmia (A fib?) Pulmonary History: Former smoker (quit in 1970) CLINICAL TECHNOLOGIST History: Denies Any Significant HX Other Medical History: Denies Any Significant HX Anesthesia History: No Prior Anesthetic Complications Alcohol Use: none Drug use: none Medications and Allergies Aspirin 81 mg PO DAILY 10/25/17 [History] Clopidogrel [Plavix] 75 mg PO DAILY 10/25/17 [History] Esomeprazole Magnesium [Nexium] 40 mg PO DAILY 10/25/17 [History] Fenofibrate Nanocrystallized [Tricor] 145 mg PO DAILY 10/25/17 [History] Ferrous Sulfate [Ferrous Sulfate] 325 mg PO DAILY 10/25/17 [History] Metoprolol [Lopressor] 50 mg PO BID 10/25/17 [History] Nitroglycerin [Nitrostat] 0.4 mg SL Q5MIN PRN 10/25/17 [History] Pravastatin Sodium [Pravachol] 40 mg PO HS 10/25/17 [History] amLODIPine [Norvasc] 2.5 mg PO DAILY 10/25/17 [History] Valsartan/Hydrochlorothiazide [Diovan Hct 320-12.5 mg Tab] 1 tab PO HS 10/26/17 [History] 3 Allergy/AdvReac Type Severity Reaction Status Date / Time Iodinated Contrast- Oral and Allergy Hives Verified 10/26/17 08:54 IV Dye meperidine [From Demerol] Allergy Hives Verified 10/26/17 08:54 - Meds/Allergy Pre-op Review Medications Reviewed: Yes Allergies Reviewed: Yes Beta Blockers on Current Med List: Yes If Beta Blockers taken, Date/Time (Last Dose taken): 10-26-17 metoprolol 20:04 Anesthesia Results - Labs 10/27/17 04:48 10/27/17 04:48 - Imaging EKG: report reviewed, image reviewed (SR) Anesthesia Exam Last Vital Signs Temp 98.0 F 10/27/17 14:14 Pulse 59 10/27/17 14:14 Resp 16 10/27/17 14:14 BP 108/74 10/27/17 14:14 Pulse Ox 99 10/27/17 14:14 Weight: 80 kg NPO (# of Hours): > 8 hrs - HEENT Pupil (Motor): Pupils equal, EOMI Mallampati: II Teeth: Edentulous Oral Opening: Greater than 3 - CLINICAL TECHNOLOGIST LOC: Oriented - Cardiac Rhythm: Regular Murmur: None - Pulmonary Breath Sounds: bilateral Clear Respiratory Effort: Symmetrical Anesthesia Assess/Plan ASA Score: 2 Modified [place] Scale for Level of Consciousness: Cooperative, oriented, and tranquil Anesthetic Plan: MAC Monitoring Plan: Standard Monitors Recovery Plan: PACU
[2017-10-27] MEDS: hydroCHLOROthiazide 25 MG TABLET PO SCH (20:22)
[2017-10-27] MEDS: Valsartan 160 MG TABLET PO SCH (20:22)
[2017-10-27] MEDS ORDERED: NON-FORMULARY MEDICATION 1 EACH EACH (Valsartan/Hydrochlorothiazide [Diovan Hct 320-12.5 M PO SCH (21:00)
[2017-10-28 01:32] LABS: Hepatitis A Antibody IgM Nonreactive (Nonreactive); Hepatitis B Core IgM Nonreactive (Nonreactive); Hepatitis C Virus Antibody Nonreactive (Nonreactive)
[2017-10-28] MEDS: Pantoprazole 40 MG in 0.9 % Sodium Chloride Mini Bag 100 ML IVC SCH ×2 (04:49→10:13)
[2017-10-28 06:00] LABS: Basophils % 0.7 %; Eosinophils # 0.2 K/mcL (0.0-0.6); Eosinophils % 4.3 %; Hematocrit 25.1 % (35.3-44.9); Hemoglobin 8.5 g/dL (11.5-15.4); Immature Granulocytes % 0.2 % (0-4); Lymphocytes % 23.1 %; Mean Corpuscular HGB Conc 33.9 g/dL (31.6-35.5); Mean Corpuscular Hemoglobin 32.4 pg (28.0-33.3); Mean Corpuscular Volume 95.8 fL (83.0-100.0); Mean Platelet Volume 10.5 fL (9.4-12.4); Monocytes # 0.4 K/mcL (0.0-1.3); Monocytes % 10.1 %; Neutrophils # 2.7 K/mcL (1.6-8.9); Platelet Count 195 K/mcL (140-400); Red Blood Count 2.62 M/mcL (3.82-4.97); Red Cell Distribution Width 14.9 % (11.5-14.5); Segmented Neutrophils % 61.6 %
[2017-10-28 06:16] LABS: BUN/Creatinine Ratio 14 (6-26); Blood Urea Nitrogen 14 mg/dL (8-23); Calcium 8.6 mg/dL (8.6-10.3); Carbon Dioxide 29 mEq/L (23-29); Chloride 110 mEq/L (98-107); Glucose 110 mg/dL (70-105); Osmolality,Calculated 305 (280-300); Potassium 3.7 mEq/L (3.5-5.1); Sodium 147 mEq/L (136-145); eGFR For African Americans > 60 (> 60); eGFR For Non-African Americans 54 (> 60)
[2017-10-28] MEDS: amLODIPine 5 MG TABLET PO SCH (08:27)
[2017-10-28] MEDS ORDERED: Aspirin Enteric Coated 81 MG Tablet PO SCH (09:00)
[2017-10-28] MEDS ORDERED: Fenofibrate 54 MG TABLET PO SCH (09:00)
[2017-10-28 11:30] VITALS: BP 122/73
--- NOTE | 2017-10-28 13:10 | Discharge Summary ---
- NOTES TO OUTPATIENT PROVIDER Notes to Outpatient Provider: Follow-up with primary care physician within the next 7 days. Continue Protonix 40 mg oral twice a day. Follow-up with cardiology within the next 2 weeks. Follow-up with GI within the next 2 weeks. Stop Plavix, may continue aspirin 81 mg daily next week. Orders not resulted at time of discharge: Pending orders 10/27/17 09:15 AFP Tumor Marker Non- Routine JEFFY IgG DEV rflx IFA Routine [id number] Routine Ceruloplasmin Routine F-Actin IgG Reflex Sm Muscle Routine MPO/PR3 (ANCA) Antibodies Routine Mitochondrial M2 Antibody, IgG Routine 10/27/17 14:44 Surgical Pathology [PTH] Routine Date of Encounter: 10/28/17 Time of Encounter: 13:08 - Discharge Diagnosis (1) Upper gastrointestinal hemorrhage Priority: Primary Status: Acute Assessment and Plan: Acute blood loss anemia secondary to upper GI bleed due to esophagitis and chronic gastritis (2) CAD (coronary artery disease) Priority: Secondary Status: Acute Assessment and Plan: Last intervention 2014. Qualifiers: Coronary Disease-Associated Artery/Lesion type: [place] artery [place] vs. transplanted heart: [place] heart Associated angina: without angina Qualified Code(s): I25.10 - Atherosclerotic heart disease of [place] coronary artery without angina pectoris (3) Hypertension Priority: Secondary Status: Chronic Qualifiers: Hypertension type: essential hypertension Qualified Code(s): I10 - Essential (primary) hypertension (4) Hyperlipidemia Priority: Secondary Status: Chronic Qualifiers: Hyperlipidemia type: unspecified Qualified Code(s): E78.5 - Hyperlipidemia , unspecified (5) Anemia Priority: Primary Status: Acute Assessment and Plan: . Hospital course: Ms. Banuelos is a 77 year old female who has history of CAD status post stents on Plavix and aspirin, hypertension hyperlipidemia, irritable bowel syndrome, atrial fibrillation, presented to the emergency room for Black stool and syncope. Patient reported that she started to have black stools 10 days or to admission, was seen by her PCP and the also admitted to [facility] 2 days . They discharged her her on Tylenol and PPI. But the patient continued to have black stool and the dizziness. She passed out on Thursday, she also complained of right low quadrant abdominal pain, which started 10 days ago, eating make it worse. I Plavix and aspirin were held. 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 Her hemoglobin dropped from 10.5 down to 8.5, but has been stable since yesterday. The patient was given the option to monitor her blood counts one more day but since she has not had any bleeding and her hemoglobin is stable, she prefers to be discharged. The patient was recommended to stop Plavix as her last stent was in 2014 and to hold aspirin for a few more days. She will follow-up with cardiology within the next 2 weeks. Follow-up with GI within the next 2 weeks - Time Spent with Patient Total time spent providing and/or coordinating discharge services: Greater than 30 minutes (40 min) - Discharge Medications Prescriptions: Pantoprazole Sodium [Protonix] 40 mg PO BID #60 tablet.dr Ocampo Medications: Aspirin 81 mg PO DAILY 10/25/17 [History] Esomeprazole Magnesium [Nexium] 40 mg PO DAILY 10/25/17 [History] Fenofibrate Nanocrystallized [Tricor] 145 mg PO DAILY 10/25/17 [History] Ferrous Sulfate 325 mg PO DAILY 10/25/17 [History] Metoprolol [Lopressor] 50 mg PO BID 10/25/17 [History] Nitroglycerin [Nitrostat] 0.4 mg SL Q5MIN PRN 10/25/17 [History] Pravastatin Sodium [Pravachol] 40 mg PO HS 10/25/17 [History] amLODIPine [Norvasc] 2.5 mg PO DAILY 10/25/17 [History] Valsartan/Hydrochlorothiazide [Diovan Hct 320-12.5 mg Tab] 1 tab PO HS 10/26/17 [History] Pantoprazole Sodium [Protonix] 40 mg PO BID #60 tablet. 10/28/17 [Rx] Allergies/Adverse Reactions: 3 Allergy/AdvReac Type Severity Reaction Status Date / Time Iodinated Contrast- Oral and Allergy Hives Verified 10/26/17 08:54 IV Dye meperidine [From Demerol] Allergy Hives Verified 10/26/17 08:54 Date of admission: 10/26/17 10:04 Primary care physician: Suzy Villa CNP - Constitutional Vitals: Temp Pulse Resp BP Pulse Ox 98.8 F 54 16 122/73 98 10/28/17 11:28 10/28/17 11:28 10/28/17 11:28 10/28/17 11:28 10/28/17 11:28 General appearance: Present: A&O X 3, pleasant - Head Head exam: Present: atraumatic, normocephalic - Eye Eye exam: Present: PERRL, conjuntiva pink, sclera anicteric Pupils: Present: PERRL - Neck Neck exam general surgery: Present: supple, trachea midline. Absent: lymphadenopathy - Respiratory Respiratory exam: Present: CTAB. Absent: accessory muscle use, rales, rhonchi, wheezes - Cardiovascular Cardiovascular exam: Present: RRR, +S1, +S2. Absent: diastolic murmur, gallop, rubs, systolic murmur - GI/Abdominal GI/Abdominal exam: Present: normal bowel sounds, soft, no peritoneal signs. Absent: distended, tenderness - Extremities Exam Extremities exam: Present: warm, radial pulses palpable and symmetrical. Absent : calf tenderness, cyanotic, pedal edema - Neurological Exam Neurological exam: Present: CN II-XII intact, oriented X3, no focal deficits. Absent: pronater drift, facial droop, speech deficit - Skin Skin exam: Present: dry, intact - Patient Status Disposition: Home, Self-Care Condition: Good Overall status at discharge: patient is back to baseline - Discharge Instructions Follow Up With: Suzy Villa CNP [Primary Care Provider] - Additional Instructions: Follow-up with primary care physician within the next 7 days. Continue Protonix 40 mg oral twice a day. Follow-up with cardiology within the next 2 weeks. Follow-up with GI within the next 2 weeks. Stop Plavix, may continue aspirin 81 mg daily next week. - Diet and Activity Activity: increase activity as tolerated Diet: low fat, low cholesterol - VTE Reasons for not Prescribing Prophylaxis: Treatment not Indicated - Low risk for VTE
[2017-10-30 08:37] LABS: ANA IgG by ELISA NONE DETECTED (None Detected); F-Actin (sm muscle) Ab IgG 6 Units (0-19); Myeloperoxidase Ab 0 AU/mL (0-19); Serine Protease-3 Antibody 0 AU/mL (0-19)
== END 2017-10-28 14:42 | disposition home or self-care (01) | DRG 378 ==
LOC: 3ANU 16:00 → EMEROO 16:00 → 2ANU 18:11
PROVIDERS: ADMIT Hospitalist; ATTEND Hospitalist
PROC: ENDOEBX (2017-10-27 13:00)